=== PATIENT | female | born 1965 | race Caucasian/White ===

== ENCOUNTER 2017-12-28 12:42 | Inpatient (IN) ==
[2017-12-28] MEDS ORDERED: ONDANSETRON 4 MG/2 ML INJECTION IVP ONE (12:56)
[2017-12-28] MEDS ORDERED: MORPHINE SULFATE 4mg INJECTION IVP ONE (12:56)
[2017-12-28] MEDS ORDERED: SALINE FLUSH 10ml SYRINGE IVF PRN (12:56)
--- NOTE | 2017-12-28 13:47 | Ultrasound Report ---
Indication: known cholelithiasis PROCEDURE: US gall bladder: Encounter: Initial Comparison: None. FINDINGS: The gallbladder is thin-walled and nondistended with at least one mobile echogenic gallstone. CBD is normal measuring 3.5 mm. The pancreas is largely obscured by bowel gas. Visualized portions of the pancreas are unremarkable. The liver is homogeneous in echotexture without focal abnormality. Duplex Doppler ultrasound was used to evaluate the quality of flow within the portal vein and to document flow in the appropriate direction.. The IVC is unremarkable. No free fluid. The right kidney is unremarkable measuring 10.8 cm in length. IMPRESSION: Cholelithiasis without evidence for cholecystitis. .
--- NOTE | 2017-12-28 14:42 | Emergency Department Report ---
Abdominal Pain HPI - General Chief Complaint: Abdominal Pain Stated Complaint: gall stones getting worse Time Seen by Provider: 12/28/17 12:47 Source: patient Mode of arrival: ambulatory - History of Present Illness HPI narrative: Pt presents with a complaint of abd pain. SHe was seen in the ER 2 days ago and had a CT performed. She has a known cholelithiasis without cholecystitis. Pt was discharged home with Zofran, [place], and Bentyl and instructed to follow up for continued care. Pt states pain has continued to increase in intensity and remains nauseated despite medication use. MD complaint: abdominal pain Onset (ago): day(s) Consistency: constant Location: RUQ, RLQ Severity: severe Radiation: none Relieving factors: nothing Exacerbating factors: eating Associated symptoms: nausea, vomiting - Related Data Home Medications Medication Instructions Recorded Confirmed Ondansetron [Zofran Odt] 4 mg PO Q4HR PRN 12/28/17 12/28/17 Previous Rx's Medication Instructions Recorded Dicyclomine [Bentyl] 20 mg PO Q6-8HR PRN #20 tab 12/26/17 Hydrocodone/APAP 5/325 [[place] 1 tab PO Q4HPRN PRN #14 tab 12/26/17 5/325] Allergies Allergy/AdvReac Type Severity Reaction Status Date / Time No Known Allergies Allergy Verified 12/29/17 00:24 Review of Systems All systems: reviewed and negative except as stated Constitutional: Reports: as per HPI Gastrointestinal: Reports: as per HPI PFSH Patient Stated Medical History Asthma Yes Other GI Yes: GALL STONES Depression Yes: HX OF - Social History Smoking status: Current every day smoker Physical Exam - Limitations Limitations: no limitations - General General appearance: alert, in distress - Normal Exams: Head:: Normocephalic without trauma Chest/Respirations:: Clear all alba, with good airflow, and symmetry bilaterally Cardiovascular:: Regular rate and rhythm, without murmur or gallop, Pulses 2+ all extremities, capillary refill, <2 seconds all extremities Abdomen:: Bowel sounds positive, non-distended (pain wiht palpation to RUQ) Musculoskeletal:: No tenderness, or deformity noted, good range of motion, all extremities Integumentary:: No rashes Neurological:: Patient is alert, and oriented, cranial nerves, motor/sensory/ cerebellar, exams w/o gross deficits, to observation Psychiatric:: Patient exhibits, appropriate attention, emotion and affect Course Vital Signs Temperature 97.6 F 12/28/17 12:45 Pulse Rate 58 L 12/28/17 12:45 Respiratory Rate 18 12/28/17 12:45 Blood Pressure 117/55 12/28/17 12:45 Pulse Oximetry 99 12/28/17 12:45 Temperature 97.6 F 12/28/17 12:45 Pulse Rate 58 L 12/28/17 12:45 Respiratory Rate 18 12/28/17 12:45 Blood Pressure 117/55 12/28/17 12:45 Pulse Oximetry 99 12/28/17 12:45 Abdominal Pain - MDM Narrative Medical decision making narrative: PT given Morphine and Zofran with some improvement in discomfort. Labs and CT reviewed with a noted elevated lipase. Dr Burgos notified and will be admitting pt for gallstone pancreatitis. Findings and plan discussed with pt who verbalizes understanding - Differential Diagnosis Differential diagnosis: Likely: abdominal pain, calculus of kidney, diverticulitis, gastroenteritis, pancreatitis, small bowel obstruction - Lab Data Attestation: I reviewed the patient's lab results. Result diagrams: 12/29/17 04:20 12/29/17 04:20 Lab Results 12/28/17 12/28/17 Range/Units 13:07 13:07 WBC 7.3 (4.5-11.0) T/MM3 RBC 4.26 (4.00-5.20) M/MM3 Hgb 14.1 (12-16) GM/DL Hct 41.5 (36-46) % MCV 97.4 (80-100) UM3 MCH 33.1 (26-34) UUG MCHC 34.0 (31-37) GM/DL RDW Std Deviation 45.0 (36.9-50.2) FL Plt Count 180 (130-400) T/MM3 MPV 10.7 (9.4-12.4) UM3 Immature Gran % (Auto) 0.1 (0.0-0.5) % Neut % (Auto) 56.8 (33-66) % Lymph % (Auto) 31.7 (23-45) % [place] % (Auto) 4.8 (0-9.0) % Eos % (Auto) 5.9 H (0-4) % Baso % (Auto) 0.7 (0-2) % Neut # (Auto) 4.2 (1.8-7.7) T/MM3 Lymph # (Auto) 2.3 (1-4.8) T/MM3 [place] # (Auto) 0.4 (0-0.8) T/MM3 Eos # (Auto) 0.4 (0-0.5) T/MM3 Baso # (Auto) 0.1 (0-0.2) T/MM3 Abs Immat Gran (auto) 0.01 (0.00-0.03) T/MM3 Turbidity < 20 (0-20) Sodium 141 (134-144) MEQ/L Potassium 4.3 (3.6-5) MEQ/L Chloride 110 H (98-107) MEQ/L Carbon Dioxide 23 (22-30) MEQ/L Anion Gap 8 (5-15) MEQ/L BUN 17.0 (7-17) MG/DL Creatinine 0.7 (0.7-1.2) MG/DL GFR Calculation 88 BUN/Creatinine Ratio 24 (6-26) RATIO Glucose 90 (65-110) MG/DL Calculated Osmolality 273 (261-280) MOSM/KG Calcium 9.0 (8.4-10.2) MG/DL Total Bilirubin < 0.10 L (0.20-1.30) MG/DL Icterus Index < 2 (0-7) AST 16 (14-36) U/L ALT 25 (9-52) U/L Alkaline Phosphatase 52 (38-126) U/L Total Protein 7.1 (6.3-8.2) G/DL Albumin 4.0 (3.5-5.0) G/DL Globulin 3.1 (2.4-3.6) G/DL Albumin/Globulin Ratio 1.3 (1.1-2.2) RATIO Lipase 783 H D (23-300) U/L Specimen Hemolysis < 15 (0-25) - Radiology Data Attestation: I reviewed the patient's radiology results. (read per Dr Champagne) Disposition Clinical Impression: Acute gallstone pancreatitis [place] [facility] [place] Condition: Improved Time of Disposition: 14:55 - Seen By: midlevel
[2017-12-28] MEDS ORDERED: HYDROMORPHONE 2 MG/ML INJECTION IVP PRN (15:11)
[2017-12-28] MEDS ORDERED: ONDANSETRON 4 MG/2 ML INJECTION IVP PRN ×2 (15:11)
[2017-12-28] MEDS ORDERED: METOCLOPRAMIDE 10mg/2ml INJECTION IVP PRN ×2 (15:11)
[2017-12-28] MEDS: LR 1,000 ML IV SCH ×3 (15:20→22:46)
[2017-12-28] MEDS: KETOROLAC 30 MG/ML INJECTION IVP PRN ×2 (15:20→21:29)
[2017-12-28] MEDS: MORPHINE SULFATE 4mg INJECTION IVP PRN ×2 (16:08→18:56)
[2017-12-29] MEDS: KETOROLAC 30 MG/ML INJECTION IVP PRN ×3 (05:09→20:11)
[2017-12-29] MEDS: LR 1,000 ML IV SCH ×7 (05:09→18:11)
--- NOTE | 2017-12-29 06:53 | History and Physical ---
ATTENDING PHYSICIAN Edson Burgos MD REASON FOR ADMISSION Gallstone pancreatitis. HISTORY OF PRESENT ILLNESS Miri is a 52-year-old female who reports that she was having some bad stomach cramps for the last 2 weeks. She had her symptoms worsen to the point of going to the emergency department on 12/26/2017. She said her pain had initially been a feeling of a bad stomachache. It was located in the epigastric region and radiated to the right upper quadrant and down into the pelvic area. She also developed back pain over the last few days. She has been having nausea and vomiting since last . This morning the patient woke up with a worsening of her pain. She was almost doubled over in pain. She rated her pain 10/10 in severity and described it as constant short stabbing pains. She presented back to the emergency department and workup had revealed a lipase of 783 though her white blood cell count was normal and her total bilirubin was less than 0.1. A previous CT scan had shown cholelithiasis and a gallbladder sonogram done in the emergency department showed no signs of acute cholecystitis. PAST MEDICAL HISTORY 1. Asthma - no current treatment. 2. Restless leg syndrome - [id number] treatment. 3. Fibromyalgia. 4. Depression - resolved. 5. Epilepsy - resolved as a child. 6. Hypothyroidism - no current treatment. PAST SURGICAL HISTORY Right total knee replacement - approximately 2013 in [place]. ALLERGIES No known drug allergies. MEDICATIONS See admission medical record reconciliation. SOCIAL HISTORY The patient is single. She is a current half pack per day smoker. She drinks alcohol very rarely. She denies illicit drug use. 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 FAMILY HISTORY Mother - hypertension, hepatitis B. Father - hypertension, hypercholesterolemia, epilepsy, diabetes mellitus. REVIEW OF SYSTEMS 10-point review of systems was negative except for history of present illness and the following. RESPIRATORY: She reports occasional wheezing. MUSCULOSKELETAL: She reports some hip pain. LABORATORY DATA See History of Present Illness. IMAGING See History of Present Illness. Gallbladder sonogram from today was personally reviewed by me. PHYSICAL EXAMINATION VITALS: Temperature 97.7, pulse 55, blood pressure 93/60, respiratory rate 18, oxygen saturation 97% on room air. GENERAL: The patient is awake, alert, in no acute distress. HEENT: Sclerae clear. Extraocular muscles intact. NECK: Supple with a midline trachea. No lymphadenopathy or thyromegaly are noted. HEART: Regular rate and rhythm. LUNGS: Clear to auscultation bilaterally. ABDOMEN: Soft, tender in the epigastric region, mostly. She does have some mild tenderness in the right upper quadrant and lower abdomen. The lateral abdomen is benign in the lower quadrants. There is no guarding or rebound noted. EXTREMITIES: No clubbing, cyanosis or edema. NEURO: Cranial nerves II-XII are grossly intact. PSYCHIATRIC: Normal mood and affect. IMPRESSION 1. Gallstone pancreatitis. 2. Obesity with BMI of 35.7. 3. Restless leg syndrome - chronic. PLAN 1. Initially, due to her gallstone pancreatitis, I advised n.p.o. with bowel rest and supportive care for treatment of her pancreatitis. 2. Following improvement of her pancreatitis, I do think that Miri will need laparoscopic cholecystectomy during this hospital stay to prevent future attacks of pancreatitis. 3. She can use her home [id number] medication for treatment of her restless leg syndrome. 4. Recheck lab in the morning and follow progress. URMILA
[2017-12-29] MEDS: MORPHINE SULFATE 4mg INJECTION IVP PRN ×3 (09:23→17:33)
[2017-12-29] MEDS ORDERED: INDOCYANINE GREEN 25mg INJECTION IVP ONE (10:00)
--- NOTE | 2017-12-29 10:16 | Progress Note ---
DATE OF VISIT 12/29/2017 REASON FOR VISIT Follow pancreatitis. SUBJECTIVE Miri still reports 10/10 pain. Her nurse reported that she received in checkout that the patient had rested well overnight. Upon awakening she does report 10/10 pain to the nursing staff, but they feel that her FLACC score is a 1. Miri still reports some nausea but no vomiting. OBJECTIVE VITAL SIGNS: Temperature 97.4. Pulse 50. Blood pressure 97/61. Respiratory rate 14. Oxygen saturation 96% on room air. GENERAL: The patient is awake, alert, in no acute distress. ABDOMEN: Soft, somewhat tender in the epigastric region but more tender in the lower midabdomen. No guarding or rebound are noted. LABORATORY DATA White blood cell count was normal at 7.4. Her lipase has improved to normal at 59. IMPRESSION 1. Gallstone pancreatitis. 2. Cholelithiasis. PLAN 1. I did discuss surgical management with cholecystectomy with Miri. She is reporting 10/10 pain, but her laboratory values indicate improvement of the pancreatitis. Since she has been hemodynamically stable, I do think that she would be ready for cholecystectomy. I will try to make arrangements for surgery later today. 2. Strict n.p.o. PATIENT EDUCATION The details, risks and benefits of surgery were discussed with the patient. The discussion included, but was not limited to, bleeding, infection, injury to intraabdominal structures, injury to the common bile duct requiring additional procedures, postoperative bile leak, retained stones possibly requiring additional procedures, conversion to an open procedure, and complications from anesthesia. Following discussion of surgery she had no additional questions and she did wish to proceed with cholecystectomy with intraoperative cholangiogram. URMILA
[2017-12-29] MEDS ORDERED: LIDOCAINE 1% (10mg/ml) 30ml SDV INJ ONE (10:55)
[2017-12-29] MEDS ORDERED: IOHEXOL 300mg/ml 50ml INJECTION ONE (10:56)
[2017-12-29] MEDS ORDERED: SALINE FLUSH 10ml SYRINGE ONE (10:56)
--- NOTE | 2017-12-29 11:16 | Anesthesia Preoperative Report ---
Anesthesia Preoperative Record - Date and Time Date: 12/29/17 Preoperative Diagnosis: Gallstone Pancreatitis Proposed Procedure: laparoscopic cholecystectomy NPO Since Date: 12/29/17 NPO Since Time: 07:00 Allergies/Adverse Reactions: Allergies Allergy/AdvReac Type Severity Reaction Status Date / Time No Known Allergies Allergy Verified 12/29/17 00:24 - Vital Signs Vital Signs: Temperature 97.4 F 12/29/17 11:01 Pulse Rate 55 L 12/29/17 11:01 Respiratory Rate 21 12/29/17 11:01 Blood Pressure 93/54 12/29/17 11:01 Pulse Oximetry 96 12/29/17 11:01 Height and Weight: Height 1.73 m Weight 107.1 kg Body Mass Index 35.6 - Medications Inpatient Medications: Current Medications Lactated Ringer's (Lactated Ringers) 1,000 mls @ 125 mls/hr IV .Q8H [facility] Last Infusion: 12/29/17 10:50 Dose: 0 mls/hr Lactated Ringer's (Lactated Ringers) 1,000 mls @ 50 mls/hr IV .Q20H [facility] Last Admin: 12/29/17 11:06 Dose: 50 mls/hr Ketorolac Tromethamine (Toradol Inj) 30 mg IVP Q6H PRN PRN Reason: Pain Last Admin: 12/29/17 05:09 Dose: 30 mg Metoclopramide HCl (Reglan) 10 mg IVP Q6H PRN Metoclopramide HCl (Reglan) 10 mg IVP Q6H PRN PRN Reason: Nausea &/or vomiting Morphine Sulfate (Morphine Sulfate Inj) 1 - 4 mg IVP Q2H PRN PRN Reason: Pain Last Admin: 12/29/17 09:23 Dose: 4 mg Ondansetron HCl (Zofran) 4 mg IVP Q6H PRN PRN Reason: Nausea &/or vomiting Last Admin: 12/28/17 16:08 Dose: 4 mg Ondansetron HCl (Zofran) 4 mg IVP Q6H PRN PRN Reason: Nausea &/or vomiting Sodium Chloride (Iv Flush) 10 - 80 ml IVF PRN PRN PRN Reason: Flushing Last Admin: 12/28/17 13:09 Dose: 20 ml Home Medications: Home Medications Medication Instructions Recorded Confirmed Type Ondansetron [Zofran Odt] 4 mg PO Q4HR PRN 12/28/17 12/28/17 History Is Patient on Beta Rosalio?: No - Medical History Respiratory: Reports: Asthma, Chronic Obstructive Pulmonary Disease (COPD) DENIES: Sleep Apnea Gastrointestional: Reports: Other (GALL STONES) Neuro/Musculoskeletal: Reports: Depression (HX OF) Other History: Reports: Anesthesia Reactions (reaction to anesthesia: hard to breathe) - Surgical History Musculoskeletal Surgery/Tx: Reports: Total Knee Replacement (RIGHT) Reproductive Surgery/Treatment: Reports: Hysterectomy - Social History Smoking Status: Current every day smoker Packs per day: 1 Pack-years: 20 Hx Chewing Tobacco Use: No Second Hand Exposure: No Substance Use Type: does not use Alcohol Intake Frequency: does not drink - Pertinent Findings Laboratory: CBC and BMP 12/29/17 04:20 12/29/17 04:20 BMP 12/29/17 04:20 Sodium 144 Potassium 4.0 Chloride 110 H Carbon Dioxide 27 BUN 13.0 Creatinine 0.9 D Glucose 85 Calcium 8.5 EKG: Sinus Rhythm - Physical Exam Respiratory Exam: Present: lungs clear Cardiovascular Exam: Present: regular rate and rhythm, no murmur - Airway Assessment Mallampati Score: III TMD: 3 Fingerbreadths Teeth: chipped teeth/crowns Overall Assessment: may be difficult intubation - ASA ASA Score: 3 - Plan Anesthesia: General Inhalation Gases - Discussion Discussion: Discussed risks/options/alternatives of anesthesia and questions answered. Patient consents. Nursing pain assessment noted. Present for Discussion: friend Attestation Statement: Prior to the delivery of any anesthetic medication, I examined the patient, developed the plan, obtained the patient's consent and discussed the risk and benefits of the procedure with the patient/guardian. - Additional Information Seen by Anesthesia: Yes
[2017-12-29] MEDS ORDERED: ROCURONIUM 50 MG/5 ML INJECTION IVP ONE (11:27)
[2017-12-29] MEDS ORDERED: PROPOFOL 20 ML ONE (11:27)
[2017-12-29] MEDS ORDERED: GLYCOPYRROLATE 0.4 MG/2 ML INJECTION ONE (11:50)
[2017-12-29] MEDS ORDERED: FentaNYL 250 MCG/5 ML INJECTION ONE (12:01)
[2017-12-29] MEDS ORDERED: LIDO 1% 30ml/BUPIV 0.25%-EPI 1:200T 30ml MIXTURE (60ml total) ID ONE (12:26)
[2017-12-29] MEDS ORDERED: IOHEXOL 300mg/ml 50ml INJECTION OPSITE ONE (12:26)
[2017-12-29] MEDS ORDERED: SUGAMMADEX 200mg/2ml INJECTION IVP ONE (13:45)
--- NOTE | 2017-12-29 13:47 | Remote Fluorsocopy Report ---
Indication: GALLSTONES PROCEDURE: RF cholangiogram operative: Comparison: Gallbladder ultrasound dated December 28, 2017 Findings: 2 fluoroscopic spot images are submitted from an intraoperative cholangiogram. Images demonstrate injection of contrast into the cystic duct with filling of the common duct and intrahepatic biliary tree. No discrete filling defects are identified. Contrast flows into the duodenum. Impression: Intraoperative fluoroscopy as above. Please refer to the dictated operative note for further details. Fluoroscopy time is 12.1 seconds. Fluoroscopy dose is 364 mRad. .
--- NOTE | 2017-12-29 13:58 | General Surgery Procedure Note ---
Date of Procedure: 12/29/17 Surgeon: Aubrey Anesthesia: General Inhalation Gases ASA Score: 3 Postoperative Diagnosis: gallstone pancreatitis, cholelithiasis Procedure: lap cara with IOC
[2017-12-29 14:44] VITALS: RESP 16
--- NOTE | 2017-12-29 15:21 | Anesthesia Postoperative Note ---
- Date and Time Date: 12/29/17 Time: 15:21 - Status Patient Participated in Evaluation: Patient Participated in Person Vital Signs: Temperature 97.4 F 12/29/17 14:25 Pulse Rate 58 L 12/29/17 15:05 Respiratory Rate 16 12/29/17 14:35 Blood Pressure 107/65 12/29/17 15:05 Pulse Oximetry 93 12/29/17 15:05 Respiratory Function: Airway Patent Cardiovascular Function: Regular Pulse EKG: Sinus Rhythm Mental Status: Alert and Oriented Pain Intensity: 3 Hydration: Taking PO Fluids Complications During Recover: None Apparent - Follow-Up Instructions Instructions: Per Surgeon
[2017-12-30] MEDS: LR 1,000 ML IV SCH ×3 (02:09→09:21)
[2017-12-30] MEDS: KETOROLAC 30 MG/ML INJECTION IVP PRN (07:10)
[2017-12-30] MEDS ORDERED: HYDROCODONE/APAP 5mg/325mg TABLET PO PRN (08:49)
[2017-12-30] MEDS ORDERED: IBUPROFEN 600 MG TABLET PO PRN (08:53)
--- NOTE | 2017-12-30 09:23 | Operative Note ---
DATE OF OPERATION 12/29/2017 SURGEON Edson Burgos MD PREOPERATIVE DIAGNOSES 1. Gallstone pancreatitis. 2. Cholelithiasis. POSTOPERATIVE DIAGNOSES 1. Gallstone pancreatitis. 2. Cholelithiasis. PROCEDURE Laparoscopic cholecystectomy with intraoperative cholangiogram. ANESTHESIA General. ASA CLASS 3 INDICATIONS The patient is a 52-year-old female who was admitted to the hospital for gallstone pancreatitis. She had had a CT scan and gallbladder sonogram that had shown cholelithiasis. Cholecystectomy was recommended to her to prevent future episodes of pancreatitis. FINDINGS There were significant omental adhesions to the body and infundibulum of the gallbladder. No acute inflammation was noted in the region. Intraoperative cholangiogram was normal with no evidence of filling defects. DESCRIPTION OF PROCEDURE After informed consent was obtained the patient was taken to the operating room and placed in supine position. General endotracheal anesthesia was administered by the anesthesia team. The patient's abdomen was then prepped and draped in the usual sterile fashion. Local was injected inferior to the umbilicus and a small skin incision was made with an 11 blade scalpel. The base of the umbilicus was elevated with a Ramya clamp. A Veress needle was inserted and was used to obtain pneumoperitoneum. A 5 mm port was then placed followed by an angled laparoscope. The laparoscope was used to guide placement of two additional 5 mm ports in the right abdomen and a 10 mm port in the subxiphoid region. All of the ports were placed under direct vision after the skin and fascia were anesthetized with local. Traction was placed on the fundus of the gallbladder. Cautery was used to take down the omental adhesions to the body of the gallbladder. The adhesions were very densely adherent. An opening in the lateral wall of the gallbladder was created which did leak bile that was irrigated and evacuated via a suction tube operator. The cystic artery was dissected free circumferentially. The cystic duct was dissected free and a critical view of safety was obtained. The duct was doubly clipped and was divided distally with cautery. There had been some bleeding from the edges of the omental adhesion in a specific location and this was controlled with an additional hemoclip. The dense adhesions around the cystic duct were then dissected free until the cystic duct had narrowed. A clip was placed proximally on the cystic duct and a ductotomy was created. A cholangiogram catheter was threaded into position and was held in place with a cholangiogram clamp. Intraoperative cholangiogram was then performed and was normal. The cholangiogram clamp was removed. The cystic duct was rather large in caliber and two clips were placed but, because of the larger size, a PDS Endoloop was also placed to try to help prevent any postoperative bile leak. The gallbladder was then taken off of the liver in a retrograde fashion using cautery. It was placed within an endoscopic retrieval bag and removed from the subxiphoid port site. Port was replaced and the right upper quadrant was irrigated and suctioned free of fluid. The gallbladder fossa was found to be hemostatic. The fascia of the subxiphoid port site was closed with a figure-of- eight stitch of 0 Vicryl suture using a laparoscopic suture passer. The right ports were removed under direct vision. Pneumoperitoneum was evacuated and the umbilical port was removed. All of the skin incisions were then closed with buried interrupted 4-0 Monocryl stitches. Benzoin, Steri-Strips and sterile Band-Aids were applied as a dressing. URMILA
[2017-12-30 15:03] VITALS: BP 114/64; PULSE 67; TEMP 95.8; O2SAT 93
[2017-12-30 15:29] VITALS: BMI 36.1
--- NOTE | 2017-12-31 09:12 | Discharge Summary ---
ATTENDING PHYSICIAN Edson Burgos MD REASON FOR ADMISSION Gallstone pancreatitis. DISCHARGE DIAGNOSES 1. Gallstone pancreatitis. 2. Cholelithiasis. 3. Obesity with BMI of 35.7 - chronic. 4. Restless leg syndrome - chronic. PROCEDURES The patient underwent laparoscopic cholecystectomy with intraoperative cholangiogram on 12/29/[address] Burgos. CONSULTATIONS None. BRIEF HOSPITAL COURSE The patient is a 52-year-old female who had been in the emergency department on 12/26/2017. She had worsening pain and presented back to the emergency department on the morning of 12/28/2017. She had lab that showed an elevated lipase of 783 and a sonogram had confirmed cholelithiasis that had been seen on a previous CT. She was admitted to the hospital due to her diagnosis of gallstone pancreatitis. The patient was admitted to the hospital and was kept n.p.o. with IV fluids. She was given morphine for pain control. The following morning, her lipase had improved and so she was made strict n.p.o. and was set up for cholecystectomy to remove her gallbladder given the gallstones. She had her procedure performed. Postoperatively she was transferred back to the floor and started on a clear liquid diet since her lipase had improved to the normal range at 59. She was doing well on the morning of postop day #1 and felt like her pain from pancreatitis had resolved. She was started on a regular diet and she did well throughout the day. She had been transitioned over to oral pain medications so she was dismissed home. DISPOSITION Home by private vehicle. CONDITION ON DISCHARGE Good. DISCHARGE INSTRUCTIONS Diet: Regular diet as tolerated. Activity: She can resume her usual activity as her incision pain allows. Wound care: The patient may remove her bandages and shower after 24 hours. FOLLOWUP The patient should follow up in the clinic in approximately two weeks. MEDICATIONS See discharge medical reconciliation. MTDD
== END 2017-12-30 16:20 | disposition home or self-care (01) | DRG 419 ==
LOC: ED 12:42 → SRG 15:00
PROVIDERS: ADMIT Surgery; ATTEND Surgery